=== PATIENT | male | born 1995 | race Caucasian/White ===

== ENCOUNTER 2017-06-19 16:02 | Emergency (ER) | payer MEDICAID ==
[~2017-06-19] VITALS: Ht 177.8 cm; Wt 62.2 kg
[2017-06-19 17:36] VITALS: BP 115/68
== END 2017-06-19 17:36 | disposition home or self-care (01) ==
LOC: ED 16:02
DX: J02.9 Acute pharyngitis, unspecified (principal); R07.89 Other chest pain
CPT/HCPCS: J1100